=== PATIENT | female | born 1970 | race American Indian/Alaskan Native ===

== ENCOUNTER 2017-04-20 07:33 | Inpatient (IN) | payer MEDICARE ==
[2017-04-19 10:55] LABS: Basophils % (Auto) 0.4 % (0.0-1.8); Eosinophils % (Auto) 1.6 % (0.0-4.3); Hematocrit 37.6 % (30.3-42.9); Hemoglobin 12.2 gm/dl (10.1-14.3); Mean Corpuscular HGB Conc 32 % (30-34); Mean Corpuscular Volume 77 fl (79-97); Platelet Count 244 K/mm3 (140-440); Red Blood Count 4.87 M/mm3 (3.65-5.03); Red Cell Distribution Width 15.4 % (13.2-15.2); White Blood Count 7.6 K/mm3 (4.5-11.0)
[2017-04-19 11:01] LABS: Mean Corpuscular Hemoglobin 25 pg (28-32)
--- NOTE | 2017-04-19 11:08 | Anesthesia Consultation ---
Anesthesia Consult and Med Hx Date of service: 04/19/17 - Airway Anesthetic Teeth Evaluation: Good ROM Head & Neck: Adequate Mental/Hyoid Distance: Adequate Mallampati Class: Class II Intubation Access Assessment: Probably Good - Pulmonary Exam CTA: Yes - Cardiac Exam Cardiac Exam: RRR - Pre-Operative Health Status ASA Pre-Surgery Classification: ASA3 Proposed Anesthetic Plan: General - Pulmonary Hx Smoking: Yes (No CPAP) Hx Asthma: No COPD: No Hx Pneumonia: No - Cardiovascular System Hx Hypertension: Yes (over 5 yrs) - Central Nervous System Hx Neuromuscular Disorder: Yes (fibromyalgia, migraine) Hx Psychiatric Problems: No - Endocrine Hx End Stage Renal Disease: No Hx Insulin Dependent Diabetes: Yes - Hematic Hx Sickle Cell Disease: Yes (trait only) - Other Systems Hx Cancer: No - Additional Comments Anesthesia Medical History Comments: Sever PONV with every surgery she had, will throw up. Hard to wake up last time she had surgery. Was able to hear them tell her to "breathe".
[2017-04-19 11:09] LABS: Blood Urea Nitrogen 10 mg/dL (7-17); Calcium 9.3 mg/dL (8.4-10.2); Carbon Dioxide 26 mmol/L (22-30); Glucose 121 mg/dL (65-100)
[2017-04-19 11:10] LABS: Anion Gap 16 mmol/L; Chloride 101.4 mmol/L (98-107); Potassium 3.4 mmol/L (3.6-5.0); Sodium 140 mmol/L (137-145)
--- NOTE | 2017-04-19 18:42 | History and Physical Report ---
History of Present Illness Date of examination: 04/19/17 Date of admission: 04/20/17 Chief complaint: Ovarian mass, pelvic pain History of present illness: This is a 46 yo here for surgery scheduled for ovariancst and pelvic pain. She has been seen by other assurance auditor for abdominal and pelvic pain and note to have a cyst for 9 months. In the office she was evaluated and noted to have significant pain on the left side with adnexal mass present. She rj an n,v,f , chills and desires surgical intervention. The Us findings are consistnet with a persistent large complex ovarian cyst on the left with measurements of 10.2x7.4x8.2cm. patint has in the past in 2000 underwnt a partial hysterectomy RENETTA via vertical incision. She has had 4 c/s in the past. we will proceed with diesired exploratory laparotomy with cystectomy and anyy other indicated procedures Past History Past Medical History: hypertension, diabetes (Type 2), other (fibromyalgia) Past Surgical History: breast surgery, ACCOUNTS RECEIVABLE ACCOUNTANT/uterine surgery (tubal ligation), section (x4), hysterectomy, other (ankle repair ) ACCOUNTS RECEIVABLE ACCOUNTANT History: fibroids Family/Genetic History: diabetes (Father and grandfather ), hypertension (mother ), cancer (colon cancer grandfather and maternal uncle ) Social history: no significant social history, single Medications and Allergies Allergies Allergy/AdvReac Type Severity Reaction Status Date / Time No Known Allergies Allergy Verified 04/14/17 13:26 Home Medications Medication Instructions Recorded Confirmed Last Taken Type Celecoxib 100 mg PO BID 04/14/17 04/14/17 Unknown History Gabapentin [Neurontin] 300 mg PO BID 04/14/17 04/14/17 Unknown History Ibuprofen [Motrin] 400 mg PO Q6H PRN 04/14/17 04/14/17 Unknown History Insulin Glargine [Lantus VIAL] 10 units PO HS 04/14/17 04/14/17 Unknown History amLODIPine [Norvasc] 10 mg PO DAILY 04/14/17 04/14/17 Unknown History metFORMIN [Glucophage] 500 mg PO BID 04/14/17 04/14/17 Unknown History Review of Systems All systems: negative - Vital Signs Vital signs: Vital Signs Temp Pulse Resp BP 97.8 F 88 16 146/86 04/19/17 10:15 04/19/17 10:15 04/19/17 10:15 04/19/17 10:15 Temp Pulse Resp BP Pulse Ox 97.8 F 88 16 146/86 04/19/17 10:15 04/19/17 10:15 04/19/17 10:15 04/19/17 10:15 - Physical Exam Breasts: Positive: deferred Cardiovascular: Regular rate, Normal S1 Lungs: Positive: Clear to auscultation, Normal air movement Abdomen: Positive: normal appearance, soft, normal bowel sounds. Negative: distention, tenderness, guarding Genitourinary (Female): Positive: normal external genitalia, normal perenium Vulva: both: normal Vagina: Positive: normal moisture Cervix: Negative: lesion Anus/Rectum: Positive: normal perianal skin Extremities: Positive: normal Deep Tendon Reflex Grade: Normal +2 Results Result Diagrams: 04/19/17 10:30 04/19/17 10:30 Abnormal lab results 04/19/17 04/19/17 Range/Units 10:30 10:30 MCV 77 L (79-97) fl MCH 25 L (28-32) pg RDW 15.4 H (13.2-15.2) % [place] % (Auto) 8.4 H (0.0-7.3) % Potassium 3.4 L (3.6-5.0) mmol/L Glucose 121 H (65-100) mg/dL All other labs normal. Ultrasound: report reviewed Assessment and Plan A/P left ovarian mass ( large) plausible benign ovarian markers neg for malignancy pelvic pain scheduled ex lap cystectomy and any other indicated procedures consents signed reviewed and allowed questions and adequate and appropriate answers after revieing risk of surgery and alternatives of surgery which include but not limited to bleeding infection damage to pelvic and non pelvic organs, john of blood transfusion, scar tissue, further pain, unpleasant anesthetic appearance, PE and Patient agreed and will proceed with surgery
[2017-04-20] MEDS ORDERED: NACL BACTERIOSTATIC INFILTRATI ONE (08:43)
[2017-04-20] MEDS ORDERED: DIPRIVAN 10 MG/ML IV ONE (08:49)
[2017-04-20] MEDS ORDERED: DILAUDID ONE ×2 (08:50→12:53)
[2017-04-20] MEDS ORDERED: ZEMURON IV ONE (08:51)
[2017-04-20] MEDS ORDERED: XYLOCAINE MPF 2% ONE (08:52)
[2017-04-20] MEDS ORDERED: VERSED IV NR (09:00)
[2017-04-20] MEDS ORDERED: TRANSDERM-SCOP TD NR (09:00)
[2017-04-20] MEDS ORDERED: NACL 0.9% 1000 ML 1,000 ML IV SCH (09:00)
[2017-04-20] MEDS ORDERED: DECADRON IV NR (09:00)
[2017-04-20] MEDS ORDERED: PEPCID PO NR (09:00)
--- NOTE | 2017-04-20 09:20 | Anesthesia Day of Surgery ---
Anesthesia Day of Surgery - Day of Surgery Patient Examined: Yes Patient H&P Reviewed: Yes Patient is NPO: Yes
[2017-04-20] MEDS ORDERED: NACL 0.9% 1000 ML 1,000 ML ONE ×2 (10:04→11:41)
[2017-04-20] MEDS ORDERED: NACL 0.9% IR ONE (10:14)
[2017-04-20] MEDS ORDERED: ANCEF ONE (10:22)
[2017-04-20] MEDS ORDERED: ZOFRAN ONE (10:26)
[2017-04-20] MEDS ORDERED: ROBINUL ONE (11:09)
[2017-04-20] MEDS ORDERED: NEOSTIGMINE ONE (11:09)
[2017-04-20] MEDS ORDERED: ZOFRAN IV PRN (12:03)
[2017-04-20] MEDS ORDERED: MILK OF MAGNESIA PO PRN (12:03)
[2017-04-20] MEDS ORDERED: PHENERGAN PR PRN (12:03)
[2017-04-20] MEDS ORDERED: NARCAN 0.4 MG/1 ML IV PRN (12:03)
[2017-04-20] MEDS ORDERED: MORPHINE IV PRN ×2 (12:03)
[2017-04-20] MEDS ORDERED: D50W (25GM) IV PRN (12:03)
[2017-04-20] MEDS ORDERED: REGLAN IV PRN (12:03)
[2017-04-20] MEDS ORDERED: PERCOCET 5/325 PO PRN (12:03)
[2017-04-20] MEDS ORDERED: TYLENOL PO PRN (12:03)
[2017-04-20] MEDS ORDERED: DULCOLAX PR PRN (12:03)
[2017-04-20] MEDS: DILAUDID IV PRN ×4 (12:14→13:21)
--- NOTE | 2017-04-20 12:33 | Operative Report ---
Operative Report Operative Report: PREOPERATIVE DIAGNOSES 1. Pelvic mass. 2. Suspected left ovarian cyst. 3. Pelvic pain POSTOPERATIVE DIAGNOSES 1. Pelvic mass. 2. Suspected left ovarian cyst. 3. Pelvic pain 4. Multiple adhesions 5. Left hydrosalpinx PROCEDURES 1. Exploratory laparotomy. 2. Extensive lysis of adhesions. 3. Left salpingectomy of hydrosalpinx . ANESTHESIA: General. ESTIMATED BLOOD LOSS: 100 mL SPECIMENS: Left tube COMPLICATIONS: None. FINDINGS: Extensive adhesive disease with the omentum and bowel walling of the entire pelvis, which required 20minutes of operating time in order to establish visualization and to clear the area to other important structures from the hydrosalpinx ( dilated tube left), in order to remove it. . Normal anatomy was difficult to see due to adhesions. Cyst was ruptured incidentally intraoperatively with approximately 50 mL to clear fluid in the hydrosalpinx . There was excellent postoperative hemostasis. PROCEDURE: The patient was taken to the operating room, where general anesthesia was achieved without difficulty. She was then placed in a dorsal supine position and prepped and draped in the usual sterile fashion. A pfansteil incision was made from the patient's prior incision. Incision was carried down carefully until the peritoneal cavity was reached. Care was taken upon entry of the peritoneum to avoid injury of underlying structures. At this point, the extensive adhesive disease was noted, again requiring greater than 20 minutes of dissection in order to visualize the intended anatomy for surgery. The omentum was carefully stripped away from the patient's left side developing a window. This was extended down along the inferior portion of the incision removing the omentum from its adhesions. Adhesiolysis was performed in order to free up the hydrosalpinx. Excellent hemostasis was noted. The bowel was then packed over of the pelvis allowing visualization large hydrosalpinx After identificatio of the hydrosalpinc was made and ovary visualized direcly connected to the left ovary both appearing normal a helen claped applied and enaseal used to detach the tube from ovary . Excellent hemostasis noted. a stitch placed in the two pedicles . Minimal leakage of clear fluid unincidental was noted removing hydrosalpinx which was sent to pathology in its entirety. Visualizaion of ovary on left was attached with adhesion to right tube. other adhesion of bowel was noted to right ovary. I did not release adhesion as ovary both appeared grossly normal . The abdomen and pelvis were copiously irrigated with warm saline solution All instruments and packs removed from the patient's abdomen. A 3-0 vicryl used to reapproximate muscle . The abdomen was closed with a running mattress closure of #0 PDS, beginning at the left aspect of the incision, and extending right and tied in center . Excellent closure of the incision was noted. The subcutaneous tissues were then copiously irrigated. Hemostasis was achieved with the use of cautery. Subcutaneous tissues were reapproximated to close the edge space with a running sutures of 2-0 vicryl suture. The skin was closed with nura. Incision was sterilely clean and dressed. The patient was awakened from general anesthesia and taken to the recovery room in stable condition. All counts were noted correct times three.
[2017-04-20] MEDS ORDERED: D5LR 1,000 ML IV SCH (13:00)
--- NOTE | 2017-04-20 13:31 | Post Anesthesia Evaluation ---
- Post Anesthesia Evaluation Patient Participated: Yes Airway Patent: Yes Stable Respiratory Function: Yes Temp > 96.8F: Yes Pain Manageable: Yes Adequeate Hydration: Yes Anesthesia Complications: No Block Receding Appropriately: Not Applicable
[2017-04-20] MEDS: TORADOL IV SCH ×3 (14:54→22:42)
[2017-04-20] MEDS: GLUCOPHAGE PO SCH (18:16)
[2017-04-20] MEDS: NEURONTIN PO SCH ×2 (18:50→22:50)
[2017-04-20] MEDS: NACL 0.9% 1000 ML 1,000 ML IV SCH (20:44)
[2017-04-20] MEDS: COLACE PO SCH (21:42)
[2017-04-21] MEDS: TORADOL IV SCH ×2 (01:00→06:53)
[2017-04-21] MEDS: NACL 0.9% 1000 ML 1,000 ML IV SCH (05:13)
[2017-04-21 06:30] LABS: Hematocrit 32.5 % (30.3-42.9); Hemoglobin 10.6 gm/dl (10.1-14.3)
[2017-04-21] MEDS: GLUCOPHAGE PO SCH ×2 (08:29→17:38)
[2017-04-21] MEDS: NORCO 5/325 PO PRN ×2 (08:29→16:13)
--- NOTE | 2017-04-21 08:45 | Progress Note ---
Assessment and Plan A/P POD#1 salpingectomy ex lap 1. VSS 2. pain controlled 3. DM continue insulin 4. +flatus- advance diet as tolerated 5. ambulating without difficulty 6. consider d/c home tomorrow Subjective - Subjective Date of service: 04/21/17 Principal diagnosis: s/p ex lap salpingectomy left Interval history: This is a 46 yo here for surgery scheduled for ovariancst and pelvic pain. 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 In the office she was evaluated and noted to have significant pain on the left side with adnexal mass present. She rj an n,v,f , chills and desires surgical intervention. The Us findings are consistnet with a persistent large complex ovarian cyst on the left with measurements of 10.2x7.4x8.2cm. patint has in the past in 2000 underwnt a partial hysterectomy RENETTA via vertical incision. She has had 4 c/s in the past. we will proceed with diesired exploratory laparotomy with cystectomy and anyy other indicated procedures Patient reports: appetite normal, voiding normally, pain well controlled, flatus , ambulating normally Objective - Vital Signs Latest vital signs: Vital Signs Temp Pulse Resp BP BP Pulse Ox 04/21/17 05:45 99.8 F H 74 24 130/72 04/21/17 03:41 100 F H 74 24 129/70 04/21/17 03:00 20 04/20/17 23:53 18 04/20/17 22:42 18 04/20/17 21:33 98.5 F 104 H 22 144/81 04/20/17 20:46 18 04/20/17 16:55 97.9 F 72 18 126/64 04/20/17 15:30 98.1 F 68 16 141/78 04/20/17 13:51 18 04/20/17 13:40 69 18 130/70 99 04/20/17 13:30 99.5 F 73 16 126/57 99 04/20/17 13:21 14 04/20/17 13:18 15 04/20/17 13:15 75 12 137/53 99 04/20/17 13:00 75 12 129/64 99 04/20/17 12:48 17 04/20/17 12:45 78 12 144/67 98 04/20/17 12:30 81 12 159/72 98 04/20/17 12:15 72 9 L 135/66 100 04/20/17 12:14 16 04/20/17 12:10 74 12 128/53 100 04/20/17 12:05 76 12 168/75 100 04/20/17 12:00 84 12 152/77 99 04/20/17 11:55 98 F 86 12 167/77 98 Intake and Output 04/20/17 04/21/17 04/21/17 22:59 06:59 14:59 Intake Total 700 1240 Output Total 800 300 Balance -100 940 Intake: IV 500 1000 D5lr 1,000 ml @ 125 mls/ 500 hr IV DIRECT EULALIA Rx#: [id number] NaCl 0.9% 1000 ml 1,000 1000 ml @ 125 mls/hr IV DIRECT EULALIA Rx#:[id number] Oral 200 240 Output: Urine 800 300 Indwelling Catheter 800 300 Other: Total, Intake Amount 200 240 Total, Output Amount 800 300 Voiding Method Indwelling Catheter Indwelling Catheter # Bowel Movements 0 - Exam Breasts: Present: deferred Cardiovascular: Present: Regular rate, Normal S1 Lungs: Present: Clear to auscultation, Normal air movement Abdomen: Present: normal appearance, soft, normal bowel sounds. Absent: distention, tenderness Extremities: Present: normal Deep Tendon Reflex Grade: Normal +2 Incision: Present: dry, intact, dressed - Labs Labs: Abnormal lab results 04/20/17 04/20/17 04/20/17 Range/Units 08:54 12:00 18:13 Glucose (65-100) mg/dL POC Glucose 123 H 180 H 213 H (70-105) 04/20/17 04/21/17 04/21/17 Range/Units 22:14 06:15 06:44 Glucose 134 H (65-100) mg/dL POC Glucose 158 H 164 H (70-105)
[2017-04-21] MEDS: COLACE PO SCH ×2 (10:31→22:11)
[2017-04-21] MEDS: NORVASC PO SCH (10:31)
[2017-04-21] MEDS: NEURONTIN PO SCH ×2 (10:34→22:11)
--- NOTE | 2017-04-21 13:40 | Progress Note ---
Subjective Date of service: 04/21/17 Principal diagnosis: s/p ex lap salpingectomy left Interval history: patient resting comfortably in bed. nausea resolved with medication. up ambulating. no anesthetic complicatons noted. Objective - Constitutional Vitals: Vital Signs - 12hr 04/21/17 04/21/17 04/21/17 03:00 03:41 05:45 Temperature 100 F H 99.8 F H Pulse Rate 74 74 Respiratory 20 24 24 Rate Blood Pressure 129/70 130/72 [Right] 04/21/17 04/21/17 08:00 10:31 Temperature 99.8 F H Pulse Rate 89 77 Respiratory 17 Rate Blood Pressure 140/72 [Right] - Labs CBC & Chem 7: 04/21/17 06:00 04/21/17 06:44 Labs: Abnormal lab results 04/20/17 04/20/17 04/21/17 Range/Units 18:13 22:14 06:15 Glucose (65-100) mg/dL POC Glucose 213 H 158 H 164 H (70-105) 04/21/17 Range/Units 06:44 Glucose 134 H (65-100) mg/dL POC Glucose (70-105)
[2017-04-21] MEDS: MOTRIN PO SCH (16:15)
[2017-04-22] MEDS: MOTRIN PO SCH ×3 (00:16→12:00)
[2017-04-22] MEDS: TORADOL IV SCH (06:22)
[2017-04-22] MEDS: NORCO 5/325 PO PRN (08:39)
[2017-04-22] MEDS: GLUCOPHAGE PO SCH (08:39)
[2017-04-22] MEDS: NORVASC PO SCH (12:33)
--- NOTE | 2017-04-22 14:27 | Progress Note ---
Assessment and Plan A/P POD#2 salpingectomy ex lap 1. VSS 2. pain controlled 3. DM continue insulin 4. +flatus- advance diet as tolerated 5. ambulating without difficulty 6.d/c home f/u on 7. meets criteria for discharge Subjective - Subjective Date of service: 04/22/17 Principal diagnosis: s/p ex lap salpingectomy left Interval history: This is a 46 yo here for surgery scheduled for ovariancst and pelvic pain. 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 In the office she was evaluated and noted to have significant pain on the left side with adnexal mass present. She rj an n,v,f , chills and desires surgical intervention. The Us findings are consistnet with a persistent large complex ovarian cyst on the left with measurements of 10.2x7.4x8.2cm. patint has in the past in 2000 underwnt a partial hysterectomy RENETTA via vertical incision. She has had 4 c/s in the past. we will proceed with diesired exploratory laparotomy with cystectomy and anyy other indicated procedures Patient reports: appetite normal, voiding normally, pain well controlled, flatus , ambulating normally Objective - Vital Signs Latest vital signs: Vital Signs Temp Pulse Pulse Resp BP BP 04/22/17 12:33 72 131/72 04/22/17 09:15 98.6 F 72 18 131/72 04/22/17 05:55 18 04/22/17 04:00 98.4 F 68 16 132/70 04/22/17 00:00 98.2 F 75 16 141/70 04/21/17 20:00 98.6 F 74 18 134/70 04/21/17 16:15 99.9 F H 79 18 131/63 Intake and Output 04/21/17 04/22/17 04/22/17 22:59 06:59 14:59 Intake Total 600 240 360 Balance 600 240 360 Intake: Oral 600 240 360 Other: Total, Intake Amount 240 240 360 Voiding Method Toilet # Voids Indwelling Catheter 1 Void 600 800 900 - Exam Breasts: Present: deferred Cardiovascular: Present: Regular rate, Normal S1 Lungs: Present: Clear to auscultation, Normal air movement Abdomen: Present: normal appearance, soft, normal bowel sounds. Absent: distention, tenderness, guarding Vulva: both: normal Extremities: Present: normal Deep Tendon Reflex Grade: Normal +2 Incision: Present: normal, dry, intact, other (nura intact) - Labs Labs: Abnormal lab results 04/21/17 04/21/17 04/21/17 Range/Units 10:20 13:49 17:16 POC Glucose 152 H 124 H 141 H (70-105) 04/21/17 04/22/17 04/22/17 Range/Units 22:06 06:04 09:16 POC Glucose 110 H 116 H 166 H (70-105) 04/22/17 Range/Units 11:23 POC Glucose 143 H (70-105)
--- NOTE | 2017-04-22 14:33 | Discharge Summary ---
Providers - Providers Date of Admission: 04/20/17 12:02 Date of discharge: 04/22/17 Attending physician: AYLA WELLS MD Primary care physician: LIUDMILA TAYLOR Hospitalization Reason for admission: other (ex lpa for hydrosalpinx ) Procedure: other (ex lap salpingectomy ) Incision: normal, dry, intact, other (nura intact) Condition at discharge: Good Disposition: DC-01 TO HOME OR SELFCARE Plan - Discharge Medications Prescriptions: Ibuprofen [Motrin] 600 mg PO Q8H PRN #30 tablet PRN Reason: Pain oxyCODONE /ACETAMINOPHEN [Percocet 5/325] 1 tab PO Q6HR PRN #30 tablet PRN Reason: Pain - Provider Discharge Summary Activity: routine Diet: routine Instructions: routine Additional instructions: [] Smoking cessation referral if applicable(refer to patient education folder for contact #) [] Refer to [facility] Booklet Call your doctor immediately for: * Fever > 100.5 * Heavy vaginal bleeding ( >1 pad per hour) * Severe persistent headache * Shortness of breath * Reddened, hot, painful area to leg or breast * Drainage or odor from incision. * Keep incision clean and dry at all times and follow doctor's instructions regarding bathing/showering please provide staple rmoval for removal in clinic in 10 days - Follow up plan Follow up: AYLA WELLS MD [Staff Physician] - 04/27/17
[2017-04-22 15:45] VITALS: BP 125/79
== END 2017-04-22 15:20 | disposition home or self-care (01) | DRG 743 ==
LOC: OR 07:33 → OB 12:02
PROVIDERS: ADMIT Obstetrics & Gynecology; ATTEND Obstetrics & Gynecology
PROC: 0UB60ZZ Excision of Left Fallopian Tube, Open Approach (ICD-10-PCS; principal; 2017-04-20)
PROC: 0DNW0ZZ Release Peritoneum, Open Approach (ICD-10-PCS; 2017-04-20)
PROC: 0DNS0ZZ (ICD-10-PCS; 2017-04-20)
DX: N70.11 Chronic salpingitis (principal); R19.00 Intra-abdominal and pelvic swelling, mass and lump, unspecified site; I10 Essential (primary) hypertension; M79.7 Fibromyalgia; G43.909 Migraine, unspecified, not intractable, without status migrainosus; E11.9 Type 2 diabetes mellitus without complications; K66.0 Peritoneal adhesions (postprocedural) (postinfection); Z87.891 Personal history of nicotine dependence; Z90.710 Acquired absence of both cervix and uterus; Z98.51 Tubal ligation status; Z83.3 Family history of diabetes mellitus; Z82.49 Family history of ischemic heart disease and other diseases of the circulatory system; Z79.4 Long term (current) use of insulin
CPT/HCPCS: 36415; 80048; 82947; 82962; 85014; 85018; 85025; 86850; 86900; 86901; 88305; J0690; J1100; J1170; J1815; J1885; J2250; J2270; J2405; J2704; J2710; J7030; J7121

== ENCOUNTER 2017-05-14 06:39 | Emergency (ER) | payer MEDICARE ==
[2017-05-14 08:14] LABS: Basophils % (Auto) 0.5 % (0.0-1.8); Eosinophils % (Auto) 3.8 % (0.0-4.3); Hematocrit 38.4 % (30.3-42.9); Mean Corpuscular HGB Conc 34 % (30-34); Mean Corpuscular Volume 76 fl (79-97); Platelet Count 299 K/mm3 (140-440); Red Blood Count 5.07 M/mm3 (3.65-5.03); Red Cell Distribution Width 15.7 % (13.2-15.2); White Blood Count 9.1 K/mm3 (4.5-11.0)
[2017-05-14 08:16] LABS: Alanine Aminotransferase 17 units/L (7-56); Albumin 4.3 g/dL (3.9-5); Alkaline Phosphatase 68 units/L (35-129); Anion Gap 19 mmol/L; BUN/Creatinine Ratio 14.44; Blood Urea Nitrogen 13 mg/dL (7-17); Calcium 9.9 mg/dL (8.4-10.2); Carbon Dioxide 26 mmol/L (22-30); Chloride 98.1 mmol/L (98-107); Glucose 118 mg/dL (65-100); Potassium 3.4 mmol/L (3.6-5.0); Sodium 140 mmol/L (137-145); Total Protein 8.8 g/dL (6.3-8.2)
[2017-05-14 08:24] LABS: INR 1.03 (0.87-1.13)
[2017-05-14 08:31] LABS: Mean Corpuscular Hemoglobin 26 pg (28-32)
[2017-05-14 08:34] LABS: Bilirubin,Urine NEG (Negative); Blood,Urine MOD (Negative); Ketones,Urine NEG (Negative); Leukocyte Esterase,Urine NEG (Negative); Nitrite,Urine NEG (Negative); Urobilinogen,Urine < 2.0 mg/dL (<2.0)
[2017-05-14 08:45] LABS: Bacteria,Urine 1+ /HPF (Negative)
[2017-05-14] MEDS ORDERED: NORCO 5/325 PO ONE (13:52)
[2017-05-14] MEDS ORDERED: NACL 0.9% 1000 ML 1,000 ML IV ONE (13:52)
--- NOTE | 2017-05-14 13:52 | Emergency Department Report ---
HPI - General Chief Complaint: Abdominal Pain Time Seen by Provider: 05/14/17 13:33 - HPI HPI: This is a 46-year-old Afro-[place] female presents to the emergency department with right lower quadrant abdominal and pelvic discomfort and concern for an infection of her previous surgical incision. The patient had a left salpingectomy secondary to a hydrosalpinx done by Dr. Carrie Ho on April 20. She followed up in that office on May 03 for staple removal and says that there was some signs of purulent discharge and bleeding at that time. She is placed and antibiotics and has been taking them compliantly. She continues to have discomfort but now it feels like it is very tight in the right lower quadrant. She's taken some Aleve for her symptoms that any relief. She does have some Percocet at home but says that she does not like the way that it makes her feel despite the fact that it helps with her abdominal discomfort and therefore has not taken much of it. Secondarily, the patient complains of some chills and a cough has been going on for the past few days. She denies any known fever. She has a past medical history of arthritis, diabetes, migraine headaches, hypertension, sickle cell trait. No recent travel or sick contacts at home. ED Past Medical Hx - Past Medical History Hx Hypertension: Yes (over 5 yrs) Hx Congestive Heart Failure: No Hx Diabetes: Yes (since 2013) Hx Sickle Cell Disease: Yes (trait only) Hx Arthritis: Yes Hx Headaches / Migraines: Yes (migraines) Hx Asthma: No Hx COPD: No Hx HIV: No - Surgical History Additional Surgical History: hysterectomy, , surg on right elbow, left knee, left ankle - Social History Smoking Status: Never Smoker Substance Use Type: None - Medications Home Medications: Home Medications Medication Instructions Recorded Confirmed Last Taken Type Celecoxib 100 mg PO BID 04/14/17 04/20/17 04/18/17 History Gabapentin [Neurontin] 300 mg PO BID 04/14/17 04/14/17 04/19/17 History Ibuprofen [Motrin] 400 mg PO Q6H PRN 04/14/17 04/20/17 04/18/17 History Insulin Glargine [Lantus VIAL] 10 units PO HS 04/14/17 04/20/17 04/18/17 History amLODIPine [Norvasc] 10 mg PO DAILY 04/14/17 04/14/17 04/19/17 History metFORMIN [Glucophage] 500 mg PO BID 04/14/17 04/14/17 04/19/17 History Ibuprofen [Motrin] 600 mg PO Q8H PRN #30 tablet 04/21/17 Unknown Rx oxyCODONE /ACETAMINOPHEN [Percocet 1 tab PO Q6HR PRN #30 tablet 04/21/17 Unknown Rx 5/325] Ibuprofen [Motrin] 600 mg PO Q8H PRN #30 tablet 04/22/17 Unknown Rx Levofloxacin [Levaquin] 750 mg PO QDAY #7 tablet 05/14/17 Unknown Rx metroNIDAZOLE [Flagyl] 500 mg PO Q12HR #14 tab 05/14/17 Unknown Rx oxyCODONE /ACETAMINOPHEN [Percocet 1 tab PO Q6HR PRN #14 tablet 05/14/17 Unknown Rx 5/325 mg] ED Review of Systems ROS: Stated complaint: INFECTION Other details as noted in HPI Comment: All other systems reviewed and negative Constitutional: chills. denies: fever Eyes: denies: eye pain, eye discharge, vision change ENT: denies: ear pain, throat pain Respiratory: cough. denies: shortness of breath Cardiovascular: denies: chest pain, palpitations Gastrointestinal: abdominal pain. denies: diarrhea Genitourinary: denies: urgency, dysuria, discharge Musculoskeletal: denies: back pain, joint swelling, arthralgia Skin: denies: rash, lesions Neurological: denies: headache, weakness, paresthesias Physical Exam - Physical Exam Vital Signs: Vital Signs 05/14/17 07:24 Temperature 99.1 F Pulse Rate 72 Respiratory 20 Rate Blood Pressure 178/101 O2 Sat by Pulse 100 Oximetry Physical Exam: GENERAL: The patient is well-developed well-nourished. HEENT: Normocephalic. Atraumatic. Extraocular motions are intact. Patient has moist mucous membranes. Pupils equal reactive to light bilaterally. NECK: Supple. Trachea is midline. CHEST/LUNGS: Clear to auscultation. There is no respiratory distress noted. HEART/CARDIOVASCULAR: Regular. There is no tachycardia. There is no gallop rub or murmur. ABDOMEN: Abdomen is soft. There is lower middle and right lower quadrant tenderness to palpation. No guarding or rebound tenderness. No peritoneal signs. Patient has normal bowel sounds. There is no abdominal distention. SKIN: Skin is warm and dry. There is a small 2 cm opening to the lower abdomen and/or upper pelvis to the anterior wall with patient had a previous incision. It is superficial and there is no surrounding erythema, no purulent discharge and no current bleeding. NEURO: The patient is awake, alert, and oriented. The patient is cooperative. The patient has no focal neurologic deficits. The patient has normal speech. MUSCULOSKELETAL: There is no tenderness or deformity. There is no limitation range of motion. There is no evidence of acute injury. ED Course Vital Signs 05/14/17 07:24 Temperature 99.1 F Pulse Rate 72 Respiratory 20 Rate Blood Pressure 178/101 O2 Sat by Pulse 100 Oximetry - Consultations Consultation #1: I spoke to the patient's [facility], Dr. Carrie Ho, who was sent to the case presentation and the diagnosis of hydrosalpinx and felt that the patient appeared stable for discharge home but recommended antibiotics and follow-up in the office and for the patient to call tomorrow for an appointment. 05/14/17 19:11 ED Medical Decision Making - Lab Data Result diagrams: 05/14/17 07:40 05/14/17 07:40 - EKG Data -: EKG Interpreted by Me EKG shows normal: sinus rhythm, axis, intervals, QRS complexes, ST-T waves Rate: normal - EKG Data When compared to previous EKG there are: previous EKG unavailable Interpretation: normal EKG - Radiology Data Radiology results: report reviewed, image reviewed interpreted by me: Chest x-ray did not show any acute process. Heart is normal shape and size. No effusions. No pneumothorax. No signs of pneumonia seen. TECHNIQUE: CT abdomen and pelvis with IV contrast. Multiplanar reformations. PRIORS: None FINDINGS: Lung bases show no significant abnormality. No free intraperitoneal gas seen. Fatty liver noted. No significant focal lesion. Normal-appearing gallbladder. Distal common bile duct is mildly prominent at 6.3 mm. Spleen shows no significant abnormality. Adrenal glands show no significant abnormality. Right kidney shows no significant abnormality. 2 mm calculus mid to lower left kidney. No hydronephrosis on either side. Pancreas shows no significant abnormality. Abdominal aorta is non-aneurysmal. Status post hysterectomy. Appendix not seen with certainty. Tubular fluid collection in the right adnexal region may represent a hydrosalpinx. There is extensive stranding in the anterior pelvis, with some ill-defined high density fluid, predominantly anterior and to the left of the bladder. Neither ovary is seen with certainty, the stranding and high density fluid anterior and to the left of bladder could be secondary to a ruptured ovarian cyst. No abscess seen. IMPRESSION: 1. Stranding and ill-defined higher density fluid in the pelvis probably anterior and to the left of the bladder extending to left adnexal region, possibly could represent sequela of ruptured ovarian cyst, follow-up ultrasound recommended. Suspect hydrosalpinx on the right as well. 2. Left renal calculus 3. Fatty liver. Mildly prominent distal common bile duct. Consider ultrasound follow-up. PROCEDURE: US TRANSVAGINAL and transabdominal TECHNIQUE: Real-time transabdominal sonography in multiple planes of the pelvis was performed. The pelvic structures were not optimally visualized. Transvaginal sonography was then performed to better evaluate the structures and/or abnormalities described below with image documentation. Grayscale, color flow Doppler imaging and velocity spectral waveform analysis of the ovaries was employed (duplex imaging). CPT 95912, 05856, and [address]109 HISTORY: lower abd and pelvic pain COMPARISON: CT 05/14/2017 FINDINGS: UTERUS There has been hysterectomy RIGHT Ovary: 4.0 x 2.4 x 3.4 cm. Appearance: There is a complex cystic lesion in the right ovary which measures up to 2.9 centimeters. Doppler images: Normal spectral waveforms and color flow. The systolic and diastolic velocities are within normal limits. LEFT Ovary: 3.9 x 2.0 x 2.0 cm. Appearance: Normal. Doppler images: Normal spectral waveforms and color flow. The systolic and diastolic velocities are within normal limits. Pelvic fluid: Small amount of free fluid is seen in the pelvis. Other: There is a fluid-filled tubular structure in the right pelvis, which may be related to a hydrosalpinx if the fallopian tubes are present. IMPRESSION: 2.9 centimeter complex cystic lesion in the right ovary. Tubular fluid-filled structure in the right pelvis may be related to a hydrosalpinx if the fallopian tubes are present. - Medical Decision Making 46-year-old female presents to the emergency department with complaint of lower abdominal pain and concern for infection after a few weeks status post left- sided salpingectomy. However the pain this time is on the right side. I looked at the incision site and there is no signs of any current superficial skin infection. Labs are mostly unremarkable and do not show any etiology of the patient's symptoms. However due to her discomfort, a CT of the abdomen and pelvis with IV contrast was done that showed some inflammatory markers and fat stranding leading towards the right adnexa and recommended a follow-up ultrasound. Ultrasound was done that showed concern for a right-sided hydrosalpinx. Patient was given some pain medication within the emergency department and upon reevaluation is feeling improved. As per the consultation section, I spoke to Dr. Carrie Ho of [facility], who would like the patient to follow-up in the next day or so in their outpatient office and recommends antibiotics. Patient was given a prescription for Flagyl, Levaquin and pain medication. She will return to the ER with any worsening of her symptoms or any acute distress. - Differential Diagnosis ovarian torsion, appendicitis, colitis, diverticulitis Critical Care Time: No Critical care attestation.: If time is entered above; I have spent that time in minutes in the direct care of this critically ill patient, excluding procedure time. ED Disposition Clinical Impression: Hydrosalpinx, Right sided abdominal pain Hypertension Qualifiers: Hypertension type: essential hypertension Qualified Code(s): I10 - Essential ( primary) hypertension Disposition: - TO HOME OR SELFCARE Is pt being admited?: No Condition: Stable Instructions: Abdominal Pain (ED), Hypertension (ED) Additional Instructions: Please call Dr. Ho's office tomorrow regarding your hydrosalpinx. Take the antibiotics as prescribed. Return to the emergency department with any worsening of your symptoms or any acute distress. You should not drink alcohol while taking these antibiotics or any medications, but one of the antibiotics in particular, Flagyl, has a significant and terrible reaction to alcohol. You' ve been prescribed a medication that is sedating. Therefore this medication cannot be mixed with alcohol, or taken prior to driving, working, or being responsible for children. Prescriptions: Levofloxacin [Levaquin] 750 mg PO QDAY #7 tablet metroNIDAZOLE [Flagyl] 500 mg PO Q12HR #14 tab oxyCODONE /ACETAMINOPHEN [Percocet 5/325 mg] 1 tab PO Q6HR PRN #14 tablet PRN Reason: Pain Referrals: CARRIE HO MD [Staff Physician] - [facility] Time of Disposition: 18:34
[2017-05-14] MEDS ORDERED: NACL ONE (14:03)
--- NOTE | 2017-05-14 15:40 | Cat Scan Report ---
FINAL REPORT EXAM: CT ABDOMEN PELVIS W CON HISTORY: Abd pain TECHNIQUE: CT abdomen and pelvis with IV contrast. Multiplanar reformations. PRIORS: None FINDINGS: Lung bases show no significant abnormality. No free intraperitoneal gas seen. Fatty liver noted. No significant focal lesion. Normal-appearing gallbladder. Distal common bile duct is mildly prominent at 6.3 mm. Spleen shows no significant abnormality. Adrenal glands show no significant abnormality. Right kidney shows no significant abnormality. 2 mm calculus mid to lower left kidney. No hydronephrosis on either side. Pancreas shows no significant abnormality. Abdominal aorta is non-aneurysmal. Status post hysterectomy. Appendix not seen with certainty. Tubular fluid collection in the right adnexal region may represent a hydrosalpinx. There is extensive stranding in the anterior pelvis, with some ill-defined high density fluid, predominantly anterior and to the left of the bladder. Neither ovary is seen with certainty, the stranding and high density fluid anterior and to the left of bladder could be secondary to a ruptured ovarian cyst. No abscess seen. IMPRESSION: 1. Stranding and ill-defined higher density fluid in the pelvis probably anterior and to the left of the bladder extending to left adnexal region, possibly could represent sequela of ruptured ovarian cyst, follow-up ultrasound recommended. Suspect hydrosalpinx on the right as well. 2. Left renal calculus 3. Fatty liver. Mildly prominent distal common bile duct. Consider ultrasound follow-up.
--- NOTE | 2017-05-14 16:18 | XRay Report ---
FINAL REPORT PROCEDURE: XR CHEST ROUTINE 2V TECHNIQUE: PA and lateral chest radiographs were obtained. CPT 27557 HISTORY: cough COMPARISON: No prior studies are available for comparison. FINDINGS: Heart: Normal contour. Mediastinum/Vessels: Normal contour. Lungs/Pleural space: No infiltrate, effusion, or pneumothorax. Bony thorax: No acute osseous abnormality. Other: IMPRESSION: No radiographic evidence of acute abnormality.
--- NOTE | 2017-05-14 17:44 | Ultrasound Report ---
FINAL REPORT PROCEDURE: US TRANSVAGINAL and transabdominal TECHNIQUE: Real-time transabdominal sonography in multiple planes of the pelvis was performed. The pelvic structures were not optimally visualized. Transvaginal sonography was then performed to better evaluate the structures and/or abnormalities described below with image documentation. Grayscale, color flow Doppler imaging and velocity spectral waveform analysis of the ovaries was employed (duplex imaging). CPT 27655, 04302, and 29927 HISTORY: lower abd and pelvic pain COMPARISON: CT 05/14/2017 FINDINGS: UTERUS There has been hysterectomy RIGHT Ovary: 4.0 x 2.4 x 3.4 cm. Appearance: There is a complex cystic lesion in the right ovary which measures up to 2.9 centimeters. Doppler images: Normal spectral waveforms and color flow. The systolic and diastolic velocities are within normal limits. LEFT Ovary: 3.9 x 2.0 x 2.0 cm. Appearance: Normal. Doppler images: Normal spectral waveforms and color flow. The systolic and diastolic velocities are within normal limits. Pelvic fluid: Small amount of free fluid is seen in the pelvis. Other: There is a fluid-filled tubular structure in the right pelvis, which may be related to a hydrosalpinx if the fallopian tubes are present. IMPRESSION: 2.9 centimeter complex cystic lesion in the right ovary. Tubular fluid-filled structure in the right pelvis may be related to a hydrosalpinx if the fallopian tubes are present.
--- NOTE | 2017-05-14 17:45 | Ultrasound Report ---
FINAL REPORT PROCEDURE: US TRANSVAGINAL and transabdominal TECHNIQUE: Real-time transabdominal sonography in multiple planes of the pelvis was performed. The pelvic structures were not optimally visualized. Transvaginal sonography was then performed to better evaluate the structures and/or abnormalities described below with image documentation. Grayscale, color flow Doppler imaging and velocity spectral waveform analysis of the ovaries was employed (duplex imaging). CPT 49719, 80059, and 51205 HISTORY: lower abd and pelvic pain COMPARISON: CT 05/14/2017 FINDINGS: UTERUS There has been hysterectomy RIGHT Ovary: 4.0 x 2.4 x 3.4 cm. Appearance: There is a complex cystic lesion in the right ovary which measures up to 2.9 centimeters. Doppler images: Normal spectral waveforms and color flow. The systolic and diastolic velocities are within normal limits. LEFT Ovary: 3.9 x 2.0 x 2.0 cm. Appearance: Normal. Doppler images: Normal spectral waveforms and color flow. The systolic and diastolic velocities are within normal limits. Pelvic fluid: Small amount of free fluid is seen in the pelvis. Other: There is a fluid-filled tubular structure in the right pelvis, which may be related to a hydrosalpinx if the fallopian tubes are present. IMPRESSION: 2.9 centimeter complex cystic lesion in the right ovary. Tubular fluid-filled structure in the right pelvis may be related to a hydrosalpinx if the fallopian tubes are present. PROCEDURE: TECHNIQUE: HISTORY: COMPARISON: FINDINGS: IMPRESSION:
[2017-05-14 19:17] VITALS: BP 156/78
== END 2017-05-14 19:17 | disposition home or self-care (01) ==
LOC: ED 06:39
DX: N70.11 Chronic salpingitis (principal); I10 Essential (primary) hypertension; E11.9 Type 2 diabetes mellitus without complications; M19.90 Unspecified osteoarthritis, unspecified site; G43.909 Migraine, unspecified, not intractable, without status migrainosus; Z79.4 Long term (current) use of insulin
CPT/HCPCS: 36415; 71020; 74177; 76830; 80053; 81001; 82140; 82962; 85025; 85610; 87040; 87086; 93005; 93010; 93975; 96360; 96361; 99285; J7030; Q9967

== ENCOUNTER 2017-12-05 09:53 | Outpatient (CLI) | payer MEDICARE ==
--- NOTE | 2017-12-05 15:57 | Mammography Report ---
BILATERAL DIGITAL SCREENING MAMMOGRAM with CAD: 12/05/17 09:53:00 CLINICAL: Routine screening. COMPARISON:09/13/16 FINDINGS: The breasts are mostly fatty. Stable low-density circumscribed left outer nodule with a biopsy clip. No new mass, architectural distortion or suspicious calcifications. IMPRESSION: No mammographic evidence of malignancy. BI-RADS CATEGORY: 2 -- Benign RECOMMENDATION: Routine mammographic screening in one year. COMMENT: Patient follow-up letters are generated by our [employer] application.
== END 2017-12-05 09:54 | disposition home or self-care (01) ==
LOC: SPVWC 09:53
PROVIDERS: ATTEND Surgery
DX: Z12.31 Encounter for screening mammogram for malignant neoplasm of breast (principal)
CPT/HCPCS: 77067

== ENCOUNTER 2018-12-11 12:44 | Outpatient (CLI) | payer MEDICARE ==
--- NOTE | 2018-12-11 13:36 | Mammography Report ---
BILATERAL DIGITAL SCREENING MAMMOGRAM with CAD : 12/11/18 12:44:00 CLINICAL: Routine screening.Previous left benign biopsy. COMPARISON:12/05/17 FINDINGS: The breasts are heterogeneously dense, which may obscure small masses.Left outer biopsy clip with a stable circumscribed nodule at the clip. No new mass, architectural distortion or suspicious calcifications. IMPRESSION: No mammographic evidence of malignancy. BI-RADS CATEGORY: 2 -- Benign RECOMMENDATION: Routine mammographic screening in one year. COMMENT: Patient follow-up letters are generated by our [employer] application.
== END 2018-12-11 12:45 | disposition home or self-care (01) ==
LOC: SPVWC 12:44
PROVIDERS: ATTEND Surgery
DX: Z12.31 Encounter for screening mammogram for malignant neoplasm of breast (principal); I10 Essential (primary) hypertension; E11.9 Type 2 diabetes mellitus without complications; Z90.710 Acquired absence of both cervix and uterus; Z87.891 Personal history of nicotine dependence
CPT/HCPCS: 77067

== ENCOUNTER 2019-05-10 14:41 | Outpatient (CLI) | payer MEDICARE | END 2019-05-10 14:42 | disposition home or self-care (01) | LOC: LABHHL 14:41 | PROVIDERS: ATTEND Surgery | DX: N60.01 Solitary cyst of right breast (principal); I10 Essential (primary) hypertension; Z90.710 Acquired absence of both cervix and uterus; E11.9 Type 2 diabetes mellitus without complications | CPT/HCPCS: 88112 ==

== ENCOUNTER 2019-12-17 09:40 | Outpatient (CLI) | payer MEDICARE ==
--- NOTE | 2019-12-17 10:51 | Mammography Report ---
DIGITAL SCREENING MAMMOGRAM WITH CAD, 12/17/2019 INDICATION: Routine screening mammography. TECHNIQUE: Digital bilateral 2D mammography was obtained in the craniocaudal and mediolateral obliq ue projections. This examination was interpreted with the benefit of Computer-Aided Detection analysi s. COMPARISON: 12/11/2018 FINDINGS: Breast Density: The breasts are heterogeneously dense, which may obscure small masses. There is no evidence of dominant mass, suspicious calcifications or architectural distortion in eithe r breast. A left outer biopsy clip. IMPRESSION: No mammographic evidence of malignancy. Follow up recommendation: Routine yearly BI-RADS Category 2: Benign. A "normal" or negative report should not discourage follow up or biopsy of a clinically significant f inding. A written summary of these findings will be mailed to the patient. The patient will be entered into a mammography reporting system which will generate a reminder letter for the patient's next appointmen t at the appropriate interval. The [employer] recommends yearly mammograms starting at age 40 and continuing as l tolu as a woman is in good health. Breast MRI is recommended for women with an approximate 20-25% or greater lifetime risk of breast cancer, including women with a strong family history of breast or ova alanis cancer or who have been treated for Hodgkin's disease. Signer Name: Aleksey Landis MD Signed: 12/17/2019 10:46 AM Workstation Name: [id number]
== END 2019-12-17 09:41 | disposition home or self-care (01) ==
LOC: SPVWC 09:40
PROVIDERS: ATTEND Surgery
DX: Z12.31 Encounter for screening mammogram for malignant neoplasm of breast (principal)
CPT/HCPCS: 77067

== ENCOUNTER 2020-12-18 08:41 | Outpatient (CLI) | payer MEDICARE ==
--- NOTE | 2020-12-18 13:31 | Mammography Report ---
DIGITAL SCREENING MAMMOGRAM WITH CAD, 12/18/2020 CLINICAL INFORMATION / INDICATION: Routine screening mammography. SCREENING MAMMO TECHNIQUE: Digital bilateral 2D mammography was obtained in the craniocaudal and mediolateral obliqu e projections. This examination was interpreted with the benefit of Computer-Aided Detection analysis . COMPARISON: Prior mammograms 12/17/2019 and 12/11/2018 FINDINGS: Breast Density: There are scattered areas of fibroglandular density. No dominant mass, suspicious calcifications, or architectural distortion in the left breast. There is a stable nodular density with associated biopsy clip in the left breast. There is a 10 mm focal asymmetric density in the 9:00 position of the right breast, middle depth, whi ch requires further evaluation. IMPRESSION: 1. A focal asymmetric density in the right breast requires further evaluation with spot compression v iews and targeted ultrasound if needed. Follow up recommendation: Special View: Spot BI-RADS Category 0: Incomplete. Needs additional imaging evaluation and/or prior mammograms for princess rison. A "normal" or negative report should not discourage follow up or biopsy of a clinically significant f inding. A written summary of these findings will be mailed to the patient. The patient will be entered into a mammography reporting system which will generate a reminder letter for the patient's next appointmen t at the appropriate interval. The [employer] recommends yearly mammograms starting at age 40 and continuing as l tolu as a woman is in good health. Breast MRI is recommended for women with an approximate 20-25% or greater lifetime risk of breast cancer, including women with a strong family history of breast or ova alanis cancer or who have been treated for Hodgkin's disease. Signer Name: Catherine Carty MD Signed: 12/18/2020 1:27 PM Workstation Name: [email or web address]
== END 2020-12-18 08:42 | disposition home or self-care (01) ==
LOC: MAMMO 08:41
PROVIDERS: ATTEND Surgery
DX: Z12.31 Encounter for screening mammogram for malignant neoplasm of breast (principal)
CPT/HCPCS: 77067

== ENCOUNTER 2020-12-30 12:05 | Outpatient (CLI) | payer MEDICARE ==
--- NOTE | 2020-12-30 15:27 | Mammography Report ---
RIGHT DIGITAL DIAGNOSTIC MAMMOGRAM WITH CAD CONVENTIONAL, 12/30/2020 RIGHT LIMITED BREAST ULTRASOUND CLINICAL INFORMATION / INDICATION: Patient presents as a callback from screening mammogram for furthe r evaluation of a focal asymmetric density in the right breast. ABNORMAL MAMMOGRAM TECHNIQUE: Digital right mammographic imaging was performed. Spot compression views were obtained. Li mited ultrasound was performed. This examination was interpreted with the benefit of Computer-Aided D etection (CAD) analysis. COMPARISON: Prior mammogram 12/18/2020 FINDINGS: Breast Density: There are scattered areas of fibroglandular density. MAMMOGRAPHIC FINDINGS: Spot compression views reveal a persistent 10 mm focal asymmetric density in t he 8:00 position of the right breast, middle depth. ULTRASOUND FINDINGS: Targeted ultrasound evaluation was performed of the area of interest. Correspo nding with the focal asymmetric density seen mammographically, there is a probable cluster of cysts i n the right breast 8:00 position located 3 cm from the nipple measuring up to 12 x 4 x 9 mm. No inter nal vascularity is demonstrated. IMPRESSION: 1. A probable benign cluster of cysts accounts for the mammographic finding. Recommend right breast u ltrasound in 6 months to ensure stability. Follow up recommendation: Short term follow up in 6 months. BI-RADS Category 3: Probably Benign. Followup in 6 months. A "normal" or negative report should not discourage follow up or biopsy of a clinically significant f inding. A written summary of these findings will be mailed to the patient. The patient will be entered into a mammography reporting system which will generate a reminder letter for the patient's next appointmen t at the appropriate interval. According to the [employer], yearly mammograms are recommended starting at age 40 and continuing as long as a woman is in good health. Breast MRI is recommended for women with an ayaka roximately 20-25% or greater lifetime risk of breast cancer, including women with a strong family his tory of breast or ovarian cancer and women who have been treated for Hodgkin's disease. Signer Name: Catherine Carty MD Signed: 12/30/2020 3:22 PM Workstation Name: [id number]
== END 2020-12-30 12:06 | disposition home or self-care (01) ==
LOC: MAMMO 12:05
PROVIDERS: ATTEND Surgery
DX: N60.01 Solitary cyst of right breast (principal); R92.8 Other abnormal and inconclusive findings on diagnostic imaging of breast